=== PATIENT | male | born 1950 | race Caucasian/White ===

== ENCOUNTER 2016-03-22 11:26 | Emergency (ER) | payer OTHER ==
[~2016-03-22] VITALS: Ht 185.4 cm; Wt 117.0 kg
[2016-03-22 11:47] VITALS: BP 154/87; PULSE 73; RESP 16; TEMP 98.5; O2SAT 96
--- NOTE | 2016-03-22 12:04 | PD ---
HPI Chief Complaint: Cold / Flu Symptoms Time Seen by Provider: 12:04 Travel History International Travel<30 days: No Contact w/Intl Traveler<30days: No Traveled to known affect area: No History of Present Illness HPI 65-year-old male with a history of Crohn's disease presents to the emergency department for evaluation of productive cough for 1 week. Patient states last week he developed a cough with body aches, headache, and subjective fevers. States his fever stopped 3 days ago but his cough has worsened. States his cough is productive with green sputum and he has some shortness of breath associated with his cough. He denies any history of lung disease or asthma, denies a smoking history. States he has been taking mucinex, tylenol and aspirin. States he does take an immunomodulator medication for his Crohn's. No other complaints. PFSH Past Medical History Diminished Hearing: No Gastrointestinal Disorders: Yes (Crohn's) Immunizations Current: Yes Tetanus Vaccination: < 5 Years Influenza Vaccination: Yes Past Surgical History Appendectomy: Yes Social History Alcohol Use: Yes (OCC) Tobacco Use: No Substance Use: No Allergies-Medications (Allergen,Severity, Reaction): Coded Allergies: No Known Allergies (Unverified , 03/22/16) Reported Meds & Prescriptions Reported Meds & Active Scripts Active Albuterol Neb (Albuterol Sulfate) 2.5 Mg/3 Ml Neb 2.5 Mg NEB Q4HR NEB While awake Nebulizer Kit/Tubing/Mout (N/A) 1 Kit Kit 1 Kit .ROUTE DIRECTED Reported Hyoscyamine (Hyoscyamine Sulfate) 0.125 Mg Tab 0.125 Mg PO Q6H Review of Systems Except as stated in HPI: all other systems reviewed are Neg Physical Exam Narrative GENERAL: Well-nourished and well-developed pleasant male patient in no acute distress. SKIN: Warm and dry. HEAD: Normocephalic and atraumatic. EYES: No injection, drainage, or hyphema noted. PERRLA. EOMI. ENT: No nasal drainage noted. Oropharynx is clear and the TMs are normal with good landmarks. NECK: Supple and the trachea is midline. CARDIOVASCULAR: Regular rate and rhythm. RESPIRATORY: Wheezing throughout lung jackson bilaterally. No accessory muscle use, rhonchi, or crackles. MUSCULOSKELETAL: No obvious deformities, swelling, cyanosis, or ecchymosis is present throughout the upper and lower extremities. Patient has full range of motion without any signs of neurovascular compromise. NEUROLOGICAL: Awake, alert, and oriented. Normal speech and gait. Cranial nerves are grossly intact. Data Data Last Documented VS Vital Signs Date Time Temp Pulse Resp B/P Pulse Ox O2 Delivery O2 Flow Rate FiO2 03/22/16 11:55 96 Room Air 03/22/16 11:47 98.5 73 16 154/87 Orders Albuterol Neb (Albuterol Neb) (03/22/16 12:15) Prednisone (Deltasone) (03/22/16 12:15) Chest, Pa & Lat (03/22/16 12:31) Albuterol Neb (Albuterol Neb) (03/22/16 12:45) Resp Mdi / Spacer Instruction (03/22/16 13:30) MDM Medical Decision Making Medical Screen Exam Complete: Yes Emergency Medical Condition: Yes Differential Diagnosis Acute bronchitis versus early pneumonia versus URI versus influenza Narrative Course 65-year-old male presents to the emergency department for evaluation of productive cough for 1 week with shortness of breath. Patient is afebrile, vital signs are stable. He has wheezing throughout lung jackson but is in no acute distress. Patient is administered albuterol nebs and prednisone 40 mg orally. After 2 nebulizer treatments and steroids the patient still had wheezing. He was given a third albuterol treatment. He reports improvement in his shortness of breath, he still has wheezing throughout. His oxygen saturation has been maintained above 95% on room air. Chest x-ray is negative for any acute abnormalities. I did discuss possible 23 hour observation with the patient. The patient would like to try outpatient antibiotics, steroids and nebulizers at this time which I think is reasonable. I gave him strict return instructions. He'll be discharged with prescriptions for Z-talia, steroids , albuterol inhaler and cough suppressant. Patient verbalizes understanding and agreement with treatment plan. Diagnosis Primary Impression: Acute bronchitis Qualified Code: J20.9 - Acute bronchitis, unspecified organism Referrals: Primary Care Physician Patient Instructions: Acute Bronchitis (ED), General Instructions Additional Instructions: Take medications as prescribed, use inhaler as prescribed. Follow-up with your Primary Care Physician. Return to the ED for any acute worsening of symptoms. Med/Other Pt SpecificInfo: Prescription(s) given Scripts Albuterol Neb 2.5 Mg/3 Ml Neb2.5 Mg NEB Q4HR NEB #60 NEBULE Ref 0 While awake Prov:Tristian Duggan MD 03/22/16 Nebulizer Kit/Tubing/Mout 1 Kit Kit #1 KIT .ROUTE DIRECTED Ref 0 Prov:Tristian Duggan MD 03/22/16 Disposition: 01 DISCHARGE HOME Condition: Stable Betty Rosario Mar 22, 2016 12:04
[2016-03-22] MEDS ORDERED: ZITHTAB PO (12:07)
[2016-03-22] MEDS ORDERED: VENTAER INH (12:07)
[2016-03-22] MEDS ORDERED: BENZ100 PO (12:07)
[2016-03-22] MEDS ORDERED: PRED20 PO (12:07)
[2016-03-22] MEDS ORDERED: predniSONE 20 MG TAB PO ONE (12:15)
[2016-03-22] MEDS: RESP: ALBUTEROL 2.5 MG/3 ML NEB (SCH) INH ×2 (12:16→12:17)
[2016-03-22] MEDS ORDERED: HYOS0.128 PO (12:25)
[2016-03-22] MEDS ORDERED: RESP: ALBUTEROL 2.5 MG/3 ML NEB (SCH) INH ONE (12:45)
[2016-03-22] MEDS ORDERED: NEBUKIT5 (13:33)
[2016-03-22] MEDS ORDERED: ALBU0.08 NEB (13:34)
--- NOTE | 2016-03-22 13:36 | RADHPO ---
EXAM DATE/TIME: 03/22/2016 12:54 [facility] COMPARISON: No previous studies available for comparison. INDICATIONS : Short of breath and Cough MEDICAL HISTORY : None. SURGICAL HISTORY : None. ENCOUNTER: Initial ACUITY: 1 week PAIN SCORE: 5/10 LOCATION: Bilateral chest FINDINGS: Heart is minimally enlarged. Pulmonary vascularity is normal. There is minimal pleural thickening over the right chest wall. There is no evidence for a fracture. CONCLUSION: Compensated cardiomegaly otherwise negative. Carson Bhakta MD FACR on March 22, 2016 at 13:27 Board Certified Radiologist. This report was verified electronically.
== END 2016-03-22 13:42 | disposition home or self-care (01) ==
LOC: PHEFT 11:26
DX: J20.9 Acute bronchitis, unspecified (principal); M79.1 Myalgia; R51 Headache; R50.9 Fever, unspecified; Z87.19 Personal history of other diseases of the digestive system
CPT/HCPCS: 71020; 94640; 94664; 99283; J7512; J7613